=== PATIENT | female | born 1935 | race Caucasian/White ===

== ENCOUNTER 2016-09-06 09:19 | Inpatient (IN) | payer MEDICARE, OTHER ==
[~2016-09-06] VITALS: Ht 160 cm; Wt 78.5 kg
[~2016-09-06 09:19] MED LIST: ANUSOL HC CREAM30 GM TP; BACTRIM DS 8001 TAB PO; CEFTIN 250250 MG/TAB PO; COZAAR 50MG50 MG/TAB PO; CRANBERRY500 M3 PO; DEMADEX10 MG PO; DITROPAN XL10 MG PO; FOLIC ACID 11 MG/TA1 PO; IBU800 M1 PO; KLOR-CON M2020 MEQ PO; LASIX 20MG TABL20 MG PO; LASIX 40MG TABL40 MG PO; MICROZIDE12.5 MG PO; NORCO 325 MG-51 TAB PO; PERIDEX (CHLOR480 ML MM; SYNTHROID0.1 MG/TAB PO; TENORMIN 2525 MG/TAB PO; XALATAN EYE DROPS OU; ZOCOR 40MG40 MG PO; ZOLOFT 100MG100 MG PO
[2016-11-22] VITALS (13 sets, daily range): BP systolic 77–133; BP diastolic 32–80; PULSE 54–91; TEMP 96.8–97.9
[2016-11-22] MEDS ORDERED: FERROUS SU325 MG/TAB PO (07:58)
[2016-11-22] MEDS ORDERED: HCTZ 25MG TAB25 MG PO (08:02)
[2016-11-22] MEDS ORDERED: ESTRACE0.1 MG/GM VG (08:03)
[2016-11-22] MEDS ORDERED: ASPIRIN E.C. 8181 MG PO (08:04)
[2016-11-22 13:58] LABS: HEMATOCRIT 29.4 % (37.0-47.0); HEMOGLOBIN 9.5 g/dl (12.5-16.0)
[2016-11-23] VITALS (16 sets, daily range): BP systolic 89–128; BP diastolic 41–87; PULSE 77–90; TEMP 97.3–99.2
[2016-11-23 06:15] LABS: HEMATOCRIT 22.8 % (37.0-47.0)
[2016-11-23 06:16] LABS: HEMOGLOBIN 7.3 g/dl (12.5-16.0)
[2016-11-24 04:01] VITALS: BP 120/54; PULSE 83; TEMP 98.2
[2016-11-24 07:34] VITALS: BP 119/54; PULSE 104; TEMP 99
[2016-11-24 07:41] LABS: HEMATOCRIT 27.6 % (37.0-47.0); HEMOGLOBIN 8.9 g/dl (12.5-16.0)
[2016-11-24 11:31] VITALS: BP 83/44; PULSE 74; TEMP 97.9
[2016-11-24 12:59] VITALS: BP 108/50
[2016-11-24 15:39] VITALS: BP 96/44; PULSE 68; TEMP 98.1
[2016-11-25 00:59] VITALS: BP 101/52; PULSE 78; TEMP 97.5
[2016-11-25 04:30] VITALS: BP 100/46; PULSE 79; TEMP 97.6
[2016-11-25 06:54] LABS: HEMATOCRIT 25.7 % (37.0-47.0); HEMOGLOBIN 8.3 g/dl (12.5-16.0)
[2016-11-25] MEDS ORDERED: NORCO 325 MG-7.1 TAB PO (07:14)
[2016-11-25] MEDS ORDERED: ASPI325T6 PO (07:14)
[2016-11-25] MEDS ORDERED: ROXICODONE 55 MG/TAB PO (07:15)
[2016-11-25] MEDS ORDERED: TYLENOL 500MG500 MG PO (07:15)
[2016-11-25] MEDS ORDERED: COLACE 100100 MG/CAP PO (07:16)
[2016-11-25 07:51] VITALS: BP 110/46; PULSE 80; TEMP 97
== END 2016-11-25 11:40 | DRG 470 ==
LOC: JCC 10-25 10:30
PROVIDERS: Nurse Anesthetist, Certified Registered; Orthopaedic Surgery
PROC: 0SRB0JA Replacement of Left Hip Joint with Synthetic Substitute, Uncemented, Open Approach (ICD-10-PCS; principal; 2016-11-22 10:45)
DX: M87.9 Osteonecrosis, unspecified (principal); I50.32 Chronic diastolic (congestive) heart failure; M16.52 Unilateral post-traumatic osteoarthritis, left hip; E11.9 Type 2 diabetes mellitus without complications; I11.0 Hypertensive heart disease with heart failure; D50.0 Iron deficiency anemia secondary to blood loss (chronic)
CPT/HCPCS: A4315; A9284; C1713; C1776; J0690; J1100; J2250; J2405; J2704; J7030; J7040; J7120; P9016

== ENCOUNTER 2016-11-11 10:15 | Outpatient (CLI) | payer MEDICARE, OTHER ==
[~2016-11-11] VITALS: Ht 160 cm; Wt 88.1 kg
[2016-11-11 11:44] VITALS: BP 131/68; PULSE 56; TEMP 98.9
[2016-11-11 11:54] LABS: PH 6 (5-8); SQUAMOUS EPITHELIAL 0-2 /hpf; URINE APPEARANCE Clear; URINE BACTERIA None Seen /hpf; URINE BILIRUBIN Negative (NEGATIVE); URINE BLOOD Negative (NEGATIVE); URINE COLOR Yellow; URINE GLUCOSE Negative (NEGATIVE); URINE KETONE Negative (NEGATIVE); URINE RBC 0-2 /hpf; URINE UROBILINOGEN Negative (NEGATIVE); URINE WBC 0-2 /hpf
[2016-11-11 11:57] LABS: ADJUSTED CALCIUM 9.4 mg/dL (8.4-10.2); ALBUMIN 4.5 gm/dL (3.5-5.0); BILIRUBIN,TOTAL 0.8 mg/dL (0.0-1.0); CALCIUM 9.8 mg/dL (8.4-10.2); CREATININE, serum 0.72 mg/dL (0.52-1.25); TOTAL PROTEIN 7.7 gm/dL (6.4-8.2)
== END 2016-11-11 11:57 | disposition home or self-care (01) ==
LOC: COL.LAB 10:15
PROVIDERS: Orthopaedic Surgery
DX: Z01.812 Encounter for preprocedural laboratory examination (principal); M25.852 Other specified joint disorders, left hip

== ENCOUNTER → 2016-11-30 | Outpatient (CLI) | payer OTHER ==
[~2016-11-30] MED LIST changes: +ASPI325T6 PO; +ASPIRIN E.C. 8181 MG PO; +COLACE 100100 MG/CAP PO; +ESTRACE0.1 MG/GM VG; +FERROUS SU325 MG/TAB PO; +HCTZ 25MG TAB25 MG PO; +NORCO 325 MG-7.1 TAB PO; +ROXICODONE 55 MG/TAB PO; +TYLENOL 500MG500 MG PO
[2016-11-30 15:29] LABS: MEAN CELL VOLUME 95 fl (80.0-100.0); MEAN CORPUSCULAR HGB CONC 33 g/dl (33.0-37.0); MEAN PLATELET VOLUME 9.9 fl (7.4-10.4); PLATELET COUNT 321 K/mm3 (130-400); REDCELL DISTRIBUTION WIDTH-CV 16.1 % (11.5-14.5)
[2016-11-30 15:31] LABS: HEMATOCRIT 29.5 % (37.0-47.0); HEMOGLOBIN 9.6 g/dl (12.5-16.0); MEAN CORPUSCULAR HEMOGLOBIN 31 pg (27.0-31.0)
[2016-11-30 15:59] LABS: ADJUSTED CALCIUM 9.2 mg/dL (8.4-10.2); ALBUMIN 3.7 gm/dL (3.5-5.0); BILIRUBIN,TOTAL 0.9 mg/dL (0.0-1.0); CREATININE, serum 0.7 mg/dL (0.52-1.25); MAGNESIUM 2.1 mg/dL (1.6-2.3); POTASSIUM 3.7 mmol/L (3.4-5.0); TOTAL PROTEIN 6.6 gm/dL (6.4-8.2)
== END ==
LOC: COL.RAD 13:32
PROVIDERS: Family Medicine
DX: M79.604 Pain in right leg (principal); Z96.651 Presence of right artificial knee joint

== ENCOUNTER → 2017-02-15 | Outpatient (CLI) | payer MEDICARE, OTHER | LOC: COL.RAD 11:56 | DX: Z87.440 Personal history of urinary (tract) infections (principal); N28.1 Cyst of kidney, acquired ==

== ENCOUNTER → 2021-07-27 | Outpatient (CLI) | payer MEDICARE, OTHER | LOC: COL.RAD 11:31 | DX: N28.1 Cyst of kidney, acquired (principal); N30.20 Other chronic cystitis without hematuria; Z87.440 Personal history of urinary (tract) infections ==

== ENCOUNTER 2022-01-11 11:24 | Day surgery (SDC) | payer MEDICARE, OTHER ==
[~2022-01-11] VITALS: Ht 157.5 cm; Wt 88.2 kg
[2022-01-11 12:39] VITALS: BP 119/52; PULSE 53; TEMP 97.4
[2022-01-11] MEDS ORDERED: LASIX 20MG TABL20 MG PO (13:22)
[2022-01-11] MEDS ORDERED: HCTZ12.5TAB PO (13:22)
[2022-01-11] MEDS ORDERED: PROFERRIN-FORTE1 TAB PO (13:23)
[2022-01-11 13:53] VITALS: BP 99/52; PULSE 53
--- NOTE | 2022-01-11 13:53 | NUR ---
PATIENT RETURNS TO ROOM 8 PER CART FROM SURGERY AND AROUSES TO VERBAL STIMULI. IV FLUIDS INFUSING. TEMP 97.4. ROOM AIR SATS 96%. SIDERAILS UP X2 AND CALL LIGHT IN REACH. OFFERS NO COMPLAINTS OF PAIN OR NAUSEA.
[2022-01-11 14:08] VITALS: BP 106/56; PULSE 61
--- NOTE | 2022-01-11 14:08 | NUR ---
SATS DROP TO 88-89 ON ROOM AIR WHEN SLEEPING. PLACED ON OXYGEN AT 2L PER NC. WILL CONTINUE TO MONITOR. ALLOWED TO REST.
[2022-01-11 14:23] VITALS: BP 108/87; PULSE 56
--- NOTE | 2022-01-11 14:23 | NUR ---
AWAKE AND TAKING JUICE. OFFERED SNACK AND REFUSES. STATES SHE WANTS TO EAT ON HER WAY HOME. DENIES NAUSEA.
[2022-01-11 14:38] VITALS: BP 109/61; PULSE 58
--- NOTE | 2022-01-11 14:38 | NUR ---
MORE AWAKE. OXYGEN REMOVED. IV TO INT AND ASSISTED UP TO THE BATHROOM. GAIT STEADY AND USES CANE TO TRANSFER. VOIDS AND RETURNS TO ROOM. INT NEEDLE DISCONTINUED AND SITE IS FREE OF REDNESS OR SWELLING. SITE COVERED WITH COBAN. ASSISTED PATIENT WITH DRESSING. CONTINUES TO DENY PAIN OR NAUSEA.
--- NOTE | 2022-01-11 15:20 | NUR ---
DISMISSAL INSTRUCTIONS GIVEN AND VOICES UNDERSTANDING OF THESE. ASSISTED INTO WHEELCHAIR. USES CANE FOR TRANSFERRING.
--- NOTE | 2022-01-11 15:27 | NUR ---
PATIENT DISMISSED TO HOME DRIVEN BY DAUGHTER PER PRIVATE VEHICLE AND TAKEN TO THE FRONT DOOR PER WHEELCHAIR AND ASSISTED INTO CAR WITH DISMISSAL INSTRUCTIONS IN HAND.
== END 2022-01-11 15:27 | disposition home or self-care (01) ==
LOC: SDCO 11:24
DX: N39.41 Urge incontinence (principal); R35.0 Frequency of micturition; G47.33 Obstructive sleep apnea (adult) (pediatric); Z99.89 Dependence on other enabling machines and devices; Z87.891 Personal history of nicotine dependence
CPT/HCPCS: J0585; J0690; J2704; J7120